=== PATIENT | female | born 1960 | race Caucasian/White ===

== ENCOUNTER 2016-11-27 09:41 | Emergency (ER) | payer OTHER ==
[~2016-11-27] VITALS: Ht 162.6 cm; Wt 78.2 kg
[2016-11-27 09:41] VITALS: BP 133/82; PULSE 77; RESP 18; O2SAT 97
[2016-11-27 09:45] VITALS: BP 133/82; PULSE 77; RESP 18; TEMP 98.5; O2SAT 95
--- NOTE | 2016-11-27 09:59 | PD ---
HPI Chief Complaint: Fall Time Seen by Provider: 09:46 Travel History International Travel<30 days: No Contact w/Intl Traveler<30days: No Traveled to known affect area: No History of Present Illness HPI The patient is a 56-year-old female who presents to the emergency department via EMS after trip and fall. The patient states she fell down approximately 6 concrete steps earlier today at 8:50 AM, because a stairwell was dark. The patient states tumbled down the stairs, denies any loss of consciousness. The patient did not want to be evaluated immediately, however, she now has a headache and some left-sided neck pain. The patient denies any chest pain, short of breath, nausea, vomiting, abdominal pain, back pain, or difficulty using her upper or lower extremities. The patient was able to ambulate after the fall. Symptoms are mild to moderate, exacerbated after falling, and there are no current alleviating factors. PFSH Social History Tobacco Use: No Allergies-Medications (Allergen,Severity, Reaction): Coded Allergies: Erythromycin (Verified Allergy, Intermediate, GI UPSET, 11/27/16) Review of Systems Except as stated in HPI: all other systems reviewed are Neg HENT: Positive: Headaches, Neck Pain Cardiovascular: No: Chest Pain or Discomfort Respiratory: No: Shortness of Breath Gastrointestinal: No: Nausea, Vomiting, Abdominal Pain Musculoskeletal: No: Weakness Neurologic: No: Dizziness Physical Exam Narrative GENERAL: Awake, alert, pleasant 56-year-old female who appears her stated age and is in no acute respiratory distress. Patient initially was on a backboard with cervical collar in place. SKIN: Warm and dry. HEAD: Atraumatic. Normocephalic. EYES: Pupils equal and round. Pupils are 4 mm bilateral and reactive. EOMs are intact. ENT: No nasal bleeding or discharge. Mucous membranes pink and moist. NECK: Trachea midline. No JVD. Cervical collar in place. Mild tenderness of the left paravertebral muscles and left sternomastoid. CARDIOVASCULAR: Regular rate and rhythm. No murmur appreciated. RESPIRATORY: No accessory muscle use. Clear to auscultation. Breath sounds equal bilaterally. GASTROINTESTINAL: Abdomen soft, non-tender, nondistended. No rebound tenderness. Back: No tenderness over the thoracic or lumbar vertebrae. MUSCULOSKELETAL: No obvious deformities. No clubbing. No cyanosis. No edema. Patient has full range of motion of the upper and lower extremities. The patient is able to bear weight and ambulate without difficulty. NEUROLOGICAL: Awake and alert. No obvious cranial nerve deficits. Motor grossly within normal limits. Normal speech. Nonfocal. PSYCHIATRIC: Appropriate mood and affect; insight and judgment normal. Data Data Last Documented VS Vital Signs Date Time Temp Pulse Resp B/P Pulse Ox O2 Delivery O2 Flow Rate FiO2 11/27/16 09:45 98.5 77 18 133/82 95 11/27/16 09:[address] Brain W/O Iv Contrast(Rout) (11/27/16 ) Ct Cerv Spine W/O Contrast (11/27/16 ) Acetaminophen (Tylenol) (11/27/16 10:00) MDM Medical Decision Making Medical Screen Exam Complete: Yes Emergency Medical Condition: Yes Medical Record Reviewed: Yes Interpretation(s) Last Impressions Head CT 11/27/16 0000 Signed Impressions: Service Date/Time: Sunday, November 27, 2016 10:09 - CONCLUSION: Normal examination. Loy Williamson MD CT of the cervical spine reveals degenerative changes, however, no fracture. Differential Diagnosis Differential diagnosis includes closed head injury, concussion, intracranial hemorrhage, skull fracture, cervical fracture, contusion, hematoma. Narrative Course The patient was taken off of the backboard, cervical collar was maintained, and CT of the brain and cervical spine were ordered. The patient was administered Tylenol 650 mg orally for pain[address] of the brain is negative, CT the cervical spine reveals degenerative changes, but no acute fracture. The patient will be prescribed anti-inflammatories, she denies drug or pain medications and denied muscle relaxers. The patient is stable for outpatient follow-up. Diagnosis Primary Impression: Fall Qualified Code: W19.XXXA - Fall, initial encounter Additional Impressions: Neck pain Cephalgia Qualified Code: R51 - Nonintractable headache, unspecified chronicity pattern , unspecified headache type Patient Instructions: General Instructions Additional Instructions: Medications as directed. Follow-up with your primary physician. Ibuprofen as directed. Please provide the patient a copy of her CT brain and CT cervical spine Med/Other Pt SpecificInfo: Prescription(s) given Disposition: 01 DISCHARGE HOME Condition: Stable Epifanio Luis MD Nov 27, 2016 09:59
[2016-11-27] MEDS ORDERED: ACETAMINOPHEN 325 MG TAB PO ONE (10:00)
--- NOTE | 2016-11-27 10:35 | RADRPT ---
EXAM DATE/TIME: 11/27/2016 10:09 [facility] COMPARISON: No previous studies available for comparison. INDICATIONS : Trauma; fall down six steps. RADIATION DOSE: 56.35 CTDIvol (mGy) MEDICAL HISTORY : None SURGICAL HISTORY : Tonsillectomy. ENCOUNTER: Initial ACUITY: 1 day PAIN SCALE: 7/10 LOCATION: cranial TECHNIQUE: Multiple contiguous axial images were obtained of the head. Using automated exposure control and adj ustment of the mA and/or kV according to patient size, radiation dose was kept as low as reasonably a chievable to obtain optimal diagnostic quality images. FINDINGS: CEREBRUM: The ventricles are normal for age. No evidence of midline shift, mass lesion, hemorrhage or acute in farction. No extra-axial fluid collections are seen. POSTERIOR FOSSA: The cerebellum and brainstem are intact. The 4th ventricle is midline. The cerebellopontine angle i s unremarkable. EXTRACRANIAL: The visualized portion of the orbits is intact. SKULL: The calvaria is intact. No evidence of skull fracture. CONCLUSION: Normal examination. Loy Williamson MD on November 27, 2016 at 10:33 Board Certified Radiologist. This report was verified electronically.
--- NOTE | 2016-11-27 10:42 | RADRPT ---
EXAM DATE/TIME: 11/27/2016 10:10 [facility] COMPARISON: No previous studies available for comparison. INDICATIONS : Trauma; fall down six stairs. RADIATION DOSE: 30.41 CTDIvol (mGy) MEDICAL HISTORY : None SURGICAL HISTORY : Tonsillectomy. ENCOUNTER: Initial ACUITY: 1 day PAIN SCALE: 7/10 LOCATION: Bilateral neck TECHNIQUE: Volumetric scanning of the cervical spine was performed. Multiplanar reconstructions in the sagittal, coronal and oblique axial planes were performed. Using automated exposure control and adjustment o f the mA and/or kV according to patient size, radiation dose was kept as low as reasonably achievable to obtain optimal diagnostic quality images. FINDINGS: VERTEBRAE: There is moderate intervertebral disc space narrowing essentially from C3 down to C7. There is overa ll straightening of the cervical spine. There has been fusion of the right-sided facet joints at C2- C3. There is no spondylolisthesis or acute endplate fracture. Coronal reformatted images are unrema rkable. Axial images show no epidural hematoma. The cord is normal in shape. ALIGNMENT: No evidence of subluxation. C2-C3: The bony spinal canal is normal in size. No evidence of disc bulge or herniation. The neural forami na are bilaterally patent. C3-C4: The bony spinal canal is normal in size. No evidence of disc bulge or herniation. The neural forami na are bilaterally patent. C4-C5: The bony spinal canal is normal in size. No evidence of disc bulge or herniation. The neural forami na are bilaterally patent. C5-C6: The bony spinal canal is normal in size. No evidence of disc bulge or herniation. The neural forami na are bilaterally patent. C6-C7: The bony spinal canal is normal in size. No evidence of disc bulge or herniation. The neural forami na are bilaterally patent. C7-T1: The bony spinal canal is normal in size. No evidence of disc bulge or herniation. The neural forami na are bilaterally patent. CONCLUSION: Degenerative disc disease at multiple levels. No acute fracture is seen. Loy Williamson MD on November 27, 2016 at 10:34 Board Certified Radiologist. This report was verified electronically.
[2016-11-27] MEDS ORDERED: LITH300T PO (10:59)
[2016-11-27] MEDS ORDERED: LEVO.05 PO (10:59)
[2016-11-27] MEDS ORDERED: TRAZ50TA12 PO (10:59)
[2016-11-27] MEDS ORDERED: PANT40TA3 PO (10:59)
[2016-11-27] MEDS ORDERED: LITH600C PO (10:59)
[2016-11-27] MEDS ORDERED: LAMO100T PO (10:59)
[2016-11-27] MEDS ORDERED: IBUP400T20 PO (11:11)
== END 2016-11-27 11:27 | disposition home or self-care (01) ==
LOC: NEPE 09:41
DX: M54.2 Cervicalgia (principal); R51 Headache; W10.9XXA Fall (on) (from) unspecified stairs and steps, initial encounter
CPT/HCPCS: 70450; 72125